=== PATIENT | female | born 1985 | race Caucasian/White ===

== ENCOUNTER 2019-01-30 01:15 | Emergency (ER) | payer SELFPAY ==
[~2019-01-30 01:15] MED LIST: AMOX-362 PO; ANTI10DR13 OT; CEFD300C35 PO; FLUT16SP19 NS; KET10 PO; NORG1TAB6 PO; OXYC-865 PO; PER PO
[2019-01-30] MEDS ORDERED: NORG1TAB74 PO (01:31)
[2019-01-30] MEDS ORDERED: NS(*) 0.9% 1000 ML BAG 1,000 ML IV ONE (01:50)
[2019-01-30 02:06] LABS: PLATELET COUNT, AUTOMATED 294 K/uL (150-450)
[2019-01-30] MEDS ORDERED: ONDANSETRON 4 MG/2 ML VIAL IVP ONE (02:10)
--- NOTE | 2019-01-30 02:19 | ER Report ---
History and Physical Time Seen By MD: 01:20 Hx. of Stated Complaint: PATIENT REPORTS WAKING UP AT 0000 WITH "RACING HEART AND DIZZINESS" HPI/ROS CHIEF COMPLAINT: Palpitations, hyperventilating HISTORY OF PRESENT ILLNESS: 33-year-old female reports that she went to bed feeling some reflux which she normally feels daily and has since she had her gallbladder removed. However, this was not different from normal. She awoke feeling her heart racing and with the concern that she was going to . She stated in triage that she thought she was having a heart attack, however, she denies any chest pain or pressure. She states that she feels like she is hyperventilating though does not feel like she is having trouble catching her breath. She states that the palpitations have been ongoing since she woke about 30 minutes prior to arrival. She has never felt like this before. She notes tingling in her arms. She feels that lightheaded. She vomited 1 upon waking and states she felt somewhat better but now continues to feel unwell and has slight nausea. She denies recent travel. She denies recent injury or prior history or family history of DVT or PE. She denies history of anxiety or panic attacks. No tobacco, drug, or recent etoh use REVIEW OF SYSTEMS: Constitutional: No fever, no chills. Eyes: No discharge. ENT: No sore throat. Cardiovascular: above Respiratory: no cough Gastrointestinal: above, no abdominal pain Genitourinary: no dysuria Musculoskeletal: No back pain. Skin: No rashes. Neurological: mild headache Remainder of the 14 system rev: Yes Allergies: Coded Allergies: adhesive (Verified Allergy, Intermediate, BLISTERS AND REDNESS, RASH, 01/30/19) hydrocodone (Verified Adverse Reaction, Mild, nausea and felt drunk, 01/30/19) Home Meds Active Scripts Cefdinir 300 Mg Cap (OMNICEF 300 MG CAP (OR EQUIV)) 300 Mg Capsule, 300 MG PO BID, #20 CAPSULE Prov:CAROMARGARETTE FNP 03/16/15 Reported Medications Norgestimate-Ethinyl Estradiol (SPRINTEC) 1 Each Tablet, 1 EACH PO DAILY 01/30/19 Discontinued Reported Medications Amoxicillin (AMOXICILLIN) 500 Mg Capsule, 2 CAP PO Q12H, #30 CAPSULE 03/16/15 Fluticasone Prop 50 Mcg Ns (FLONASE 50 MCG NS) 16 Gm [place].susp, 1 SPRAY NS BID, BOT 03/16/15 Norgestimate-Ethinyl Estradiol (Ortho Tri-Cyclen) 7 Daysx 3 28 Tablet, 1 TAB- CAP PO QDAY, 0 Refills 06/19/11 Discontinued Scripts Antipyrine/Benzocaine/Glycerin (ANTIPYRINE-BENZOCAINE EAR DROP) 10 Ml Drops, 2 GTT OT Q2-3H PRN for PAIN, #10 ML Prov:MARGARETTE ELIZONDO [employer] 03/16/15 Oxycodone Hcl/Acetaminophen (PERCOCET 5-325 MG TABLET) 1 Each Tablet, 1 EACH PO Q4-6H PRN for PAIN, #12 TAB Prov:MARGARETTE ELIZONDO [employer] 03/16/15 Reviewed Nurses Notes: Yes Old Medical Records Reviewed: Yes Hx Smoking: No Constitutional Vital Sign - Last 24 Hours 01/30/19 01/30/19 01/30/19 01/30/19 01:23 01:25 01:26 01:30 Temp 98.0 Pulse 128 Resp 20 B/P (MAP) 134/105 (115) 142/81 (101) 134/105 135/80 (98) Pulse Ox 96 O2 Delivery Room Air 01/30/19 01/30/19 01/30/19 01/30/19 01:45 01:50 02:00 02:20 Pulse 112 110 104 Resp 11 13 12 B/P (MAP) 122/70 (87) Pulse Ox 97 95 93 01/30/19 01/30/19 01/30/19 01/30/19 02:25 02:30 03:00 03:05 Pulse 106 106 Resp 24 18 B/P (MAP) 129/71 (90) 137/67 (90) Pulse Ox 94 95 Physical Exam General Appearance: The patient is alert, has no immediate need for airway protection and no signs of toxicity. patient is tearful and anxious about her symptoms Eyes: Pupils equal and round no pallor or injection. ENT, Mouth: Mucous membranes are moist. Respiratory: There are no retractions, lungs are clear to auscultation. Cardiovascular: tachycardia, no m/r/g Gastrointestinal: Abdomen is soft and non tender, no masses, bowel sounds normal. Neurological: alert, oriented, no gross deficit Skin: Warm and dry, no rashes. Musculoskeletal: Neck is supple non tender. Extremities are nontender, nonswollen and have full range of motion. DIFFERENTIAL DIAGNOSIS: After history and physical exam differential diagnosis was considered for ACS, PE, pneumonia, sepsis, thyroid storm, electrolyte abnormality, drug use or withdrawal, or other emergent etiology of symptoms. Medical Decision Making Data Points Result Diagram: 01/30/19 0123 01/30/19 0123 Laboratory Hematology Test 01/30/19 01:23 01/30/19 03:00 Red Blood Count 4.84 M/uL (4.17-5.56) Mean Corpuscular Volume 85.7 fL (80.0-96.0) Mean Corpuscular Hemoglobin 29.3 pg (26.0-33.0) Mean Corpuscular Hemoglobin Concent 34.2 g/dL (32.0-36.0) Red Cell Distribution Width 13.1 % (11.5-14.5) Mean Platelet Volume 8.8 fL (7.2-11.1) Neutrophils (%) (Auto) 57.8 % (39.4-72.5) Lymphocytes (%) (Auto) 35.1 % (17.6-49.6) Monocytes (%) (Auto) 4.9 % (4.1-12.4) Eosinophils (%) (Auto) 1.8 % (0.4-6.7) Basophils (%) (Auto) 0.4 % (0.3-1.4) Nucleated RBC Relative Count (auto) 0.0 /100WBC Neutrophils # (Auto) 6.0 K/uL (2.0-7.4) Lymphocytes # (Auto) 3.6 K/uL (1.3-3.6) Monocytes # (Auto) 0.5 K/uL (0.3-1.0) Eosinophils # (Auto) 0.2 K/uL (0.0-0.5) Basophils # (Auto) 0.0 K/uL (0.0-0.1) Nucleated RBC Absolute Count (auto) 0.00 K/uL D-Dimer Quantitative (PE/DVT) < 0.27 ug/ml (0-0.50) Sodium Level 142 mmol/L (137-145) Potassium Level 3.4 mmol/L (3.5-5.0) Chloride Level 106 mmol/L (98-107) Carbon Dioxide Level 23 mmol/L (22-31) Blood Urea Nitrogen 11 mg/dl (7-18) Creatinine 0.80 mg/dl (0.52-1.04) Glomerular Filtration Rate Calc > 60.0 Random Glucose 116 mg/dl (75-110) Calcium Level 9.6 mg/dl (8.4-10.2) Total Bilirubin 0.3 mg/dl (0.2-1.3) Aspartate Amino Transf (AST/SGOT) 27 U/L (0-35) Alanine Aminotransferase (ALT/SGPT) 53 U/L (0-56) Alkaline Phosphatase 64 U/L (0-126) Troponin I < 0.012 ng/ml Total Protein 6.9 g/dl (6.3-8.2) Albumin 4.3 g/dl (3.5-5.0) Lipase 120 U/L (23-300) Human Chorionic Gonadotropin, Qual Negative (NEGATIVE) Salicylates Level < 10 mg/L Salicylate Last Dose Date unk Acetaminophen Level < 10 ug/ml Urine Color Yellow Urine Clarity Clear Urine pH 5.0 pH (4.8-9.5) Urine Specific [place] 1.016 Urine Protein 30 mg/dL (NEGATIVE) Urine Glucose (UA) Negative mg/dL (NEGATIVE) Urine Ketones Negative mg/dL (NEGATIVE) Urine Blood Negative (NEGATIVE) Urine Nitrite Negative (NEGATIVE) Urine Bilirubin Negative (NEGATIVE) Urine Urobilinogen Negative mg/dL (0.2-1.9) Urine Leukocyte Esterase Negative (NEGATIVE) Urine RBC <1 /HPF (0-2/HPF) Urine WBC 1 /HPF (0-5/HPF) Urine Squamous Epithelial Cells Many /LPF (</=FEW) Urine Bacteria Few /HPF (NONE-FEW) Urine Mucus Few /HPF (NONE-FEW) Urine Opiates Screen Negative Urine Barbiturates Screen Negative Ur Tricyclic Antidepressants Screen Negative Urine Phencyclidine Screen Negative Urine Amphetamines Screen Negative Urine Benzodiazepines Screen Negative Urine Cocaine Screen Negative Urine Cannabinoids Screen Positive Chemistry Test 01/30/19 01:23 01/30/19 03:00 White Blood Count 10.3 k/uL (4.5-11.0) Red Blood Count 4.84 M/uL (4.17-5.56) Hemoglobin 14.2 g/dL (12.0-16.0) Hematocrit 41.5 % (34.0-47.0) Mean Corpuscular Volume 85.7 fL (80.0-96.0) Mean Corpuscular Hemoglobin 29.3 pg (26.0-33.0) Mean Corpuscular Hemoglobin Concent 34.2 g/dL (32.0-36.0) Red Cell Distribution Width 13.1 % (11.5-14.5) Platelet Count 294 K/uL (150-450) Mean Platelet Volume 8.8 fL (7.2-11.1) Neutrophils (%) (Auto) 57.8 % (39.4-72.5) Lymphocytes (%) (Auto) 35.1 % (17.6-49.6) Monocytes (%) (Auto) 4.9 % (4.1-12.4) Eosinophils (%) (Auto) 1.8 % (0.4-6.7) Basophils (%) (Auto) 0.4 % (0.3-1.4) Nucleated RBC Relative Count (auto) 0.0 /100WBC Neutrophils # (Auto) 6.0 K/uL (2.0-7.4) Lymphocytes # (Auto) 3.6 K/uL (1.3-3.6) Monocytes # (Auto) 0.5 K/uL (0.3-1.0) Eosinophils # (Auto) 0.2 K/uL (0.0-0.5) Basophils # (Auto) 0.0 K/uL (0.0-0.1) Nucleated RBC Absolute Count (auto) 0.00 K/uL D-Dimer Quantitative (PE/DVT) < 0.27 ug/ml (0-0.50) Glomerular Filtration Rate Calc > 60.0 Calcium Level 9.6 mg/dl (8.4-10.2) Total Bilirubin 0.3 mg/dl (0.2-1.3) Aspartate Amino Transf (AST/SGOT) 27 U/L (0-35) Alanine Aminotransferase (ALT/SGPT) 53 U/L (0-56) Alkaline Phosphatase 64 U/L (0-126) Troponin I < 0.012 ng/ml Total Protein 6.9 g/dl (6.3-8.2) Albumin 4.3 g/dl (3.5-5.0) Lipase 120 U/L (23-300) Human Chorionic Gonadotropin, Qual Negative (NEGATIVE) Salicylates Level < 10 mg/L Salicylate Last Dose Date unk Acetaminophen Level < 10 ug/ml Urine Color Yellow Urine Clarity Clear Urine pH 5.0 pH (4.8-9.5) Urine Specific [place] 1.016 Urine Protein 30 mg/dL (NEGATIVE) Urine Glucose (UA) Negative mg/dL (NEGATIVE) Urine Ketones Negative mg/dL (NEGATIVE) Urine Blood Negative (NEGATIVE) Urine Nitrite Negative (NEGATIVE) Urine Bilirubin Negative (NEGATIVE) Urine Urobilinogen Negative mg/dL (0.2-1.9) Urine Leukocyte Esterase Negative (NEGATIVE) Urine RBC <1 /HPF (0-2/HPF) Urine WBC 1 /HPF (0-5/HPF) Urine Squamous Epithelial Cells Many /LPF (</=FEW) Urine Bacteria Few /HPF (NONE-FEW) Urine Mucus Few /HPF (NONE-FEW) Urine Opiates Screen Negative Urine Barbiturates Screen Negative Ur Tricyclic Antidepressants Screen Negative Urine Phencyclidine Screen Negative Urine Amphetamines Screen Negative Urine Benzodiazepines Screen Negative Urine Cocaine Screen Negative Urine Cannabinoids Screen Positive Coagulation Test 01/30/19 01:23 D-Dimer Quantitative (PE/DVT) < 0.27 ug/ml Toxicology Test 01/30/19 01:23 01/30/19 03:00 Salicylates Level < 10 mg/L Salicylate Last Dose Date unk Acetaminophen Level < 10 ug/ml Urine Opiates Screen Negative Urine Barbiturates Screen Negative Ur Tricyclic Antidepressants Screen Negative Urine Phencyclidine Screen Negative Urine Amphetamines Screen Negative Urine Benzodiazepines Screen Negative Urine Cocaine Screen Negative Urine Cannabinoids Screen Positive Urinalysis Test 01/30/19 03:00 Urine Color Yellow Urine Clarity Clear Urine pH 5.0 pH (4.8-9.5) Urine Specific [place] 1.016 Urine Protein 30 mg/dL (NEGATIVE) Urine Glucose (UA) Negative mg/dL (NEGATIVE) Urine Ketones Negative mg/dL (NEGATIVE) Urine Blood Negative (NEGATIVE) Urine Nitrite Negative (NEGATIVE) Urine Bilirubin Negative (NEGATIVE) Urine Urobilinogen Negative mg/dL (0.2-1.9) Urine Leukocyte Esterase Negative (NEGATIVE) Urine RBC <1 /HPF (0-2/HPF) Urine WBC 1 /HPF (0-5/HPF) Urine Squamous Epithelial Cells Many /LPF (</=FEW) Urine Bacteria Few /HPF (NONE-FEW) Urine Mucus Few /HPF (NONE-FEW) EKG/Imaging EKG Interpretation 12 lead EKG: Rhythm: sinus tachycardia; borderline; rate 102 [place]: normal QRS: normal ST segments: t wave fliped v2-3, flat v4, flipped iii, no st elevations or depressions [ ] Monitor Interpretation: Sinus Tachycardia ED Course/Re-evaluation ED Course 33 f presents with symptoms concerning for multiple potential organic etiologies of tachycardia/palpitations, tachypnea. Exam nonfocal and labs unremarkable for emergent etiology. Ultimately, pt spontaneously improved and is comfortable on d/c. Unclear etiology; tsh still pending though pt while possibly hyperthyroid, is not in thyroid storm, gaurang on reassessment; not hypertensive and not tachycardic. She feels comfortable for d/c which is reasonable Understands SRP's. Decision to Disposition Date: Jan 30, 2019 Decision to Disposition Time: 03:30 Depart Departure Latest Vital Signs Vital Signs Date Time Temp Pulse Resp B/P (MAP) Pulse Ox O2 Delivery O2 Flow Rate FiO2 01/30/19 03:05 106 18 95 01/30/19 03:00 137/67 (90) 01/30/19 01:26 98.0 Room Air Impression: Primary Impression: Palpitations Condition: Improved Disposition: HOME OR SELF-CARE Patient Instructions: Palpitations (ED) Additional Instructions: Please return immediately for repeat of concerning symptoms, feeling worse, or any concerning symptoms. Please follow up with your primary doctor for further evaluation and reassessment. LULÚ DECKER MD Jan 30, 2019 02:19
--- NOTE | 2019-01-30 02:40 | RADIOLOGY IMAGING REPORT ---
[place] [facility] [place] NAME: Sylvester Stack : 1985 MR: [id number] V: [id number] EXAM DATE: ORDERING PHYSICIAN: LULÚ DECKER TECHNOLOGIST: Location: [facility] - [place] Patient: Sylvester Stack : 1985 Visit/Account:[id number] Date of Sevice: 01/30/2019 AP CHEST 01/30/2019 1:46 AM. INDICATION: dyspnea COMPARISON: None. FINDINGS: Lungs are well-expanded. There is no consolidation. No pleural effusion or pneumothorax. Heart size i s normal. IMPRESSION: No acute abnormality. Report Dictated By: Bartolo Posey MD at 01/30/2019 2:33 AM Report E-Signed By: Bartolo Posey MD at 01/30/2019 2:34 AM WSN:[id number]
[2019-01-30 03:00] VITALS: BP 137/67
--- NOTE | 2019-01-31 10:22 | EKG ---
FACILITY: [facility] PATIENT NAME: JOHN ZHU : [id number] MR: [id number]: [id number] EXAM DATE: ORDERING PHYSICIAN: LULÚ DECKER TECHNOLOGIST: ENRA Marie Reason : TACHYPNEA Blood Pressure : / mmHG Vent. Rate : 102 BPM Atrial Rate : 102 BPM P-R Int : 172 ms QRS Dur : 076 ms QT Int : 350 ms P-R-T Axes : 058 062 038 degrees QTc Int : 456 ms Sinus tachycardia T wave abnormality, consider anterior ischemia Abnormal ECG No previous ECGs available Confirmed by CLARISA DRAPER ([id number]) on 01/31/2019 12:43:26 PM Referred By: Confirmed By:CLARISA DRAPER
== END 2019-01-30 03:33 | disposition home or self-care (01) ==
LOC: ER 01:46
DX: R00.2 Palpitations (principal)
CPT/HCPCS: 71045; 80305; 80329; 81001; 83690; 84443; 84484; 84703; 85025; 85379; 93005; 96374; 99283; J2405; J7030; 82040; 82247; 82310; 82374; 82435; 82565; 82947; 84075; 84132; 84155; 84295; 84450; 84460; 84520